=== PATIENT | male | born 1970 | race African-American/Black ===

== ENCOUNTER 2020-01-25 09:27 | Emergency (ER) | payer MEDICAID, SELFPAY ==
[2020-01-25 09:29] VITALS: BP 118/92; PULSE 86; RESP 18; TEMP 35.3; O2SAT 97; BMI 21.8
--- NOTE | 2020-01-25 10:05 | RAD_ITS ---
STUDY: X-RAY - CERVICAL SPINE REASON FOR EXAM: Male, 49 years old. NUMBNESS IN FINGER TIPS FOR 3 MONTHS TECHNIQUE: 3 view(s) of the cervical spine were obtained. COMPARISON: None FINDINGS: Normal anterior atlantoaxial articulation. Normal odontoid process. Normal cervical lordosis. There is multi-level endplate spondylosis. There is multi-level degenerative disc disease with multilevel disc space narrowing. The soft tissue structures are unremarkable. RAD/Cerv Spine 2 or 3 Views IMPRESSION: Degenerative changes without acute findings Electronically Signed: Jimbo Zee DO at 10:57 EST Tel , Service support ,
--- NOTE | 2020-01-25 10:06 | RAD_ITS ---
STUDY: X-RAY CHEST REASON FOR EXAM: Male, 49 years old. NUMBNESS IN FINGER TIPS FOR 3 MONTHS TECHNIQUE: PA and lateral views of the chest. COMPARISON: None. FINDINGS: The lungs are clear and expanded. There is no demonstrated pleural abnormality. Normal size heart. Normal mediastinum and mann. Normal visualized pulmonary arteries. Normal visualized aortic arch and descending thoracic aorta. Normal visualized thoracic spine. Normal visualized ribs, clavicles, and shoulders. There is no demonstrated abnormality of the visualized soft tissue structures of the upper abdomen. RAD/Chest PA and Lateral IMPRESSION: Normal x-ray examination of the chest. Electronically Signed: Jimbo Zee DO at 11:00 EST Tel , Service support ,
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
[2020-01-25 10:32] LABS: Absolute Lymphocyte Count 2.47 X10^3/uL (0.83-4.51); Absolute Neutrophil Count 2.3 X10^3/uL (2.0-7.7); Basophil# 0.04 X10^3/uL; Basophil% 0.8 % (0-1); Eosinophil# 0.07 X10^3/uL; Eosinophils% 1.3 % (0-5); Hematocrit 43.9 % (40-54); Hemoglobin 14.2 g/dL (13.0-16.5); Lymphocyte # 2.47 X10^3/ul (4.0); Lymphocyte % 46.9 % (19-41); Mean Corp Hgb Conc 32.3 g/dL (32-36); Mean Corpuscular Hgb 30.5 pg (27.0-32.0); Mean Corpuscular Volume 94.4 fL (80-94); Mean Platelet Vol. 11.7 fl (6.2-12.0); Monocyte# 0.39 X10^3/uL; Monocyte% 7.4 % (0-10); NRBC Flagged by Analyzer 0 % (0-5); Neutrophil # 2.29 X10^3/uL (2.7-7.7); Neutrophil % 43.4 % (47-70); POSITIVE MORPHOLOGY YES; Platelet Count 226 K/mm3 (150-450); RBC Distribution Width SD 48.6 fl (35.1-43.9); Red Blood Count 4.65 M/mm3 (4.6-6.2); White Blood Count 5.3 K/mm3 (4.4-11.0)
[2020-01-25 10:38] LABS: Differential Indicated SCAN CRITERIA MET
[2020-01-25 10:42] LABS: Anion Gap 5 (5-15); BUN 10 mg/dL (7-18); BUN/Creat Ratio 9.8 RATIO (10-20); Calcium,Total 9.3 mg/dL (8.5-10.1); Chloride 105 mmol/L (98-107); Creatinine, Serum 1.02 mg/dL (0.70-1.30); EST Glomerular Filtration Rate 82 mL/min (>60); Est Glom Filt Rate - Afr Amer 100 mL/min (>60); Estimated Creatinine Clearance 90.33 ml/min; Glucose 94 mg/dL (74-106); Potassium 4.2 mmol/L (3.5-5.1); Sodium Level 140 mmol/L (136-145)
[2020-01-25 11:00] LABS: Differential Comment SCANNED
== END 2020-01-25 11:22 | disposition home or self-care (01) ==
PROVIDERS: Emergency Provider Emergency Medicine
DX: M54.12 Radiculopathy, cervical region (principal)
CPT/HCPCS: 71046; 72040; 80048; 85025; 99283; A4216

== ENCOUNTER 2020-02-01 17:03 | Emergency (ER) | payer MEDICAID, SELFPAY ==
[2020-02-01 17:04] VITALS: BP 122/88; PULSE 62; RESP 17; TEMP 37; O2SAT 99; BMI 24.4
--- NOTE | 2020-02-01 17:17 | ED.VIS.GEN ---
History of Present Illness Chief Complaint: Shortness of Breath Informant: Patient Onset: Days Context: Gradual Onset Timing: Continuous Current Severity: Moderate Maximum Severity: Moderate Narrative: Patient is a 49-year-old male who takes Bentyl for abdominal cramping that presents to the emergency department concern for Covid symptoms. Patient states that about 3 days ago, he had mild as per respiratory illness. He states since then, he is lost his sense of taste. He states he had a scant cough. He is unsure if he had fever. The patient has no history of underlying lung disease. He denies any significant shortness of breath. He cannot recall any sick contacts. He is otherwise been in his normal state of health. Prior similar symptoms: No Recent Illness/Hospitalization: No Past Medical History - Allergies and Home Meds Allergies/Adverse Reactions: Allergies aspirin [ASA] Allergy (Verified 02/01/20 17:07) Marizol Primary Care Physician: Care Physician,No Primary [Primary Care Provider] - Prior records reviewed: Yes Past Medical History: None Surgical History: noncontributory Smoking Status: Current every day smoker Review of Systems General: Denies: Chills, Fever, Sweats Eyes: Denies: Visual changes - bilaterally, Diplopia ENT: Reports: Rhinorrhea. Denies: Sore throat Cardiovascular: Denies: Chest pain, Palpitations Respiratory: Reports: Cough. Denies: Dyspnea, Dyspnea on exertion Gastrointestinal: Denies: Abdominal pain, Nausea, Vomiting, Diarrhea, Melena, Hematochezia Genitourinary: Denies: Dysuria, Hematuria, Frequency Musculoskeletal: Denies: Back pain, Extremity Pain Skin: Denies: Rash, Wounds Neurological: Denies: Headache, Weakness, Numbness Physical Exam Vital Signs/Narrative: Vital Signs Temp Pulse Resp BP Pulse Ox 02/01/20 17:04 98.6 F 62 17 122/88 H 99 Inital Vital Signs reviewed: Yes General: Well nourished, Well developed, No Acute Distress Head: Normocephalic, Atraumatic Eyes: Perrl, EOMI ENT: Moist mucous membranes, No rhinorrhea Neck: Supple, Nontender Cardiovascular: Regular rate, Regular rhythm, No murmurs Respiratory: No distress, CTA bilaterally, Chest nontender Abdomen: Soft, Nontender, Nondistended, Normal bowel sounds Back: Nontender, Normal Inspection Extremities: Nontender, No edema Skin: Normal color, No rash Neurological: Alert, Oriented x3, Cranial nerves II-XII grossly intact, Normal Strength, Normal Sensation Psychological: Normal affect, Normal Mood Diagnostic/Tx/Re-eval - Medical Decision Making Patient is not hypoxic, tachypneic, or tachycardic. However, he does have symptoms corresponding to COVID-19. Antigen testing was obtained. It is positive. Patient has no history of immunosuppression. He has no dyspnea. At this point, I do feel that he safe for outpatient therapy. I did spend time counseling the patient on wearing his mask, keeping his hands clean, and quarantining. I also discussed with him concerning symptoms and reasons to return. He will be discharged home. Impression 1. COVID-19 ED Disposition - Plan for ED Patient: Instructions: Coronavirus Disease 2019 (COVID-19) Referrals: Care Physician,No Primary [Primary Care Provider] -
[2020-02-01] MEDS: Acetaminophen 500 MG Tablet 1000 MG PO (17:46)
== END 2020-02-01 18:47 | disposition home or self-care (01) ==
LOC: ED 17:30
PROVIDERS: Emergency Provider Emergency Medicine
DX: U07.1 COVID-19 (principal); F17.200 Nicotine dependence, unspecified, uncomplicated
CPT/HCPCS: 87426; 99282

== ENCOUNTER 2020-02-18 21:06 | Emergency (ER) | payer MEDICAID, SELFPAY ==
[2020-02-18 21:07] VITALS: PULSE 79; RESP 16; TEMP 37; O2SAT 100; BMI 22.4
[2020-02-18 21:16] VITALS: BP 132/67
[2020-02-18] MEDS: Diphth,Pertuss(Acell),Tet Vac 0.5 ML Vial IM (21:38)
[2020-02-18] MEDS: BACITRACIN 15 GM Tube 1 APPLIC TOPICAL (21:39)
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
[2020-02-18 22:09] VITALS: PULSE 78; RESP 18; O2SAT 99
== END 2020-02-18 22:13 | disposition home or self-care (01) ==
LOC: ED 22:09
PROVIDERS: Emergency Provider Emergency Medicine
DX: S61.411A Laceration without foreign body of right hand, initial encounter (principal); S00.81XA Abrasion of other part of head, initial encounter; V43.62XA Car passenger injured in collision with other type car in traffic accident, initial encounter
CPT/HCPCS: 90471; 90715; 99284